=== PATIENT | female | born 1965 | race Caucasian/White ===

== ENCOUNTER 2025-03-26 10:07 | Emergency (ER) | payer BC ==
[~2025-03-26] VITALS: Ht 172.7 cm; Wt 91.5 kg
--- NOTE | 2025-03-26 10:25 | Physician Documentation ---
History of Present Illness ~ Chief Complaint: Facial Swelling Stated Complaint: FACIAL SWELLING Time Seen by MD: 10:49 [facility] 60 yr old female presents to the emergency department reporting that she had some left upper dental/gum pain that was mild last night. [place] as though something was stuck between her teeth. Woke up this morning, found that she had significant facial swelling to the extent that the left eye was swollen shut. Firm swelling of the left cheek. Minimal dental pain persists, denies chills or fever. Is concerned due to the rapid swelling, contacted her daughter who is an ER doctor and directed her here. Chief Complaint: Left facial swelling Caveat: None Independent Historians: None History of Present Illness: Patient is a healthy 60-year-old woman who comes in complaining of left facial swelling that is appeared this morning upon awakening. Patient noticed some mild vague dental pain in the left upper teeth and felt a small knot in the gum. No fevers. No difficulties breathing or swallowing. Review of systems: All systems were reviewed and are negative except for what is indicated in the history of present illness. Past Medical History: Distant history of seizure disorder Past Surgical History: Noncontributory Social History: No tobacco use, no alcohol use, no drug use Medications: Reviewed as documented Nursing Notes Allergies: Reviewed as documented in Nursing Notes Medication Reconciliation Allergies: Coded Allergies: No Known Allergies (Unverified , 03/26/25) Scheduled Amox Tr/Potassium Clavulanate 875/125 MG (Augmentin 875/125 MG), 1 TAB PO Q12H Scheduled PRN Hydrocodone Bit/Acetaminophen 5/325 MG (Arcadia 5/325 MG), 1 TAB PO TID PRN PRN for pain Review of Systems All Other Systems at this time: Reviewed and Negative ROS As stated above in the HPI, otherwise all systems are reviewed and negative. Physical Exam Vital Signs: Temperature: 99.1, Source: Temporal, Heart Rate: 80, Respiratory Rate: 16, BP: 130/79, Pulse Oximetry: 100, Weight: 91.550 Oxygen Flow Rate: 0 Physical Exam General: Alert, no apparent distress. HEENT: No trismus. Uvula midline and visible posterior. Face: Firm left facial swelling. Neck: Full range of motion. Respiratory: Lungs clear, no respiratory distress. Chest: No accessory muscle use. Cardiovascular: Regular rate and rhythm, no murmurs. Gastrointestinal: Soft, nontender, nondistended. Bowels sounds present. Extremities: Normal range of motion, no deformity. Neurologic: Oriented x4. Psychiatric: Normal mood and affect. Skin: Normal color, warm and dry. No edema, no ecchymosis. PHYSICAL EXAM BELOW BY DR. SINGER General Appearance: No distress HEENT: Normal OP, moist oral mucosa, PERRL, EOMI, left facial edema and swelling. No induration, no fluctuance, no erythema. Patient has some very mild fluctuance and tenderness along teeth 15. And 16. Teeth are not tender to tap. Parotid gland is not swollen, submandibular gland isn't swollen or tender. There was no submental swelling. Normal-appearing tongue. Neck: supple, normal ROM, trachea midline Pulmonary: No respiratory distress, CTA, BS equal Cardiac: RRR, no murmur, rub or gallop, Skin: intact, dry, warm, no rashes Neuro: AAOx3, speech is clear, no focal motor weakness Procedures Procedures DRAINAGE OF PERIDENTAL ABSCESS MILD FLUCTUANCE OVER LATERAL GUM OF TEETH NUMBER 15 AND 16. TOPICAL LIDOCAINE APPLIED AND THEN LOCAL LIDOCAINE 0.4 CC 1% WITH EPI INFILTRATED. 18 GAUGE NEEDLE USED TO ASPIRATE A SMALL AMOUNT OF PUS. SMALL AMOUNT OF BLOOD AFTERWARDS PRESENT. BLEEDING CONTROLLED. PATIENT TOLERATED THE PROCEDURE WELL. Progress Results/Orders Results/Orders Completed Orders - GIUSEPPE SINGER MD Lidocaine 1.5% W/Epi 1:200,000 (Xylocain (03/26/25 11:10) Amox Tr/Potassium Clavulanate (Augmentin (03/26/25 11:10) Lidocaine 1% W/Epi 1:100,000 (Xylocaine (03/26/25 11:10) Medications Received in ER Medications (Trade) Dose Ordered Sig/Babita Route PRN Reason Start Time Stop Time Status Last Admin Dose Admin (Xylocaine 1.5%-EPI 1:200,000) 5 ml ONCE ONCE IJ 03/26/25 11:10 03/26/25 11:11 DC 03/26/25 11:24 5 ML (Augmentin 875-125mg tablet) 1 tab ONCE ONCE PO 03/26/25 11:10 03/26/25 11:12 DC 03/26/25 11:24 1 TAB Vital Signs 03/26/25 03/26/25 10:16 11:40 Temp 99.1 Pulse 80 65 Resp 16 18 B/P (MAP) 130/79 128/92 (104) Pulse Ox 100 95 O2 Flow Rate 0 0 Laboratory Tests Test 03/26/25 10:50 White Blood Count 7.1 Red Blood Count 4.39 Hemoglobin 12.6 Hematocrit 37.5 Mean Corpuscular Volume 85.4 Mean Corpuscular Hemoglobin 28.6 Mean Corpuscular Hemoglobin Concent 33.5 Red Cell Distribution Width 13.6 Platelet Count 240 Mean Platelet Volume 6.8 L Neutrophils (%) (Auto) 65.6 Lymphocytes (%) (Auto) 25.0 Monocytes (%) (Auto) 7.2 Eosinophils (%) (Auto) 1.5 Basophils (%) (Auto) 0.7 Neutrophils # (Auto) 4.6 Lymphocytes # (Auto) 1.8 Monocytes # (Auto) 0.5 Eosinophils # (Auto) 0.1 Basophils # (Auto) 0.0 CBC Comment Sodium Level 140 Potassium Level 3.8 Chloride Level 108 H Carbon Dioxide Level 23.9 L Anion Gap 8 Blood Urea Nitrogen 18 Creatinine 0.80 Estimated GFR/1.73 m2 73 BUN/Creatinine Ratio 22.5 H Glucose Level 121 H Lactic Acid Level 0.7 Calcium Level 8.8 C-Reactive Protein 2.41 H Albumin 3.7 Procalcitonin < 0.05 Chemistry Comments Medical Decision Making Findings Differential diagnosis includes but is not limited to: Facial abscess, peridental abscess, periapical abscess, parotitis, salivary stone, Xavier's Laboratory data independent interpretation: CBC: Normal CMP: Unremarkable Lactic acid: 0.7 Procalcitonin: <0.05 CRP: Elevated 2.41 Emergency department course/medical decision-making: Patient presents with facial swelling secondary to a small peridental abscess. There was no evidence of facial abscess or facial cellulitis. There was no evidence of Xavier's. No evidence of salivary stone parotitis or sialadenitis. Patient had a small peridental abscess that I drained without any complications. Patient was started on Augmentin. Patient given a prescription for Arcadia 5 mg, 5. And Augmentin for 10 days. Test results treatment plan and all the above discussed with the patient. Patient is stable for discharge and follow up with dentist as needed. Tooth Diff. Dx: Considerations: Include: Alveolar fracture, Aveolar osteitis, ANUG, Facial cellulitis, Periapical abscess, Periodontal abscess, Post- extraction bleeding, Pulpitis, Trigeminal neuralgia, Tooth-avulsion, Tooth- eruption, Tooth-fracture, Tooth-subluxation Departure Time of Disposition: 11:21 Disposition: 01 HOME / SELF CARE / HOMELESS Impression: Primary Impression: Dental abscess Discharge Instructions: Abscess, Dental Additional Instructions: YOU HAVE A SMALL EARLY DENTAL ABSCESS. FOLLOW UP WITH YOUR DENTIST. RETURN TO THE ER IF YOUR SYMPTOMS WORSEN. Prescriptions Hydrocodone Bit/Acetaminophen 5/325 MG ([place]cad[place] 5/325 MG) 5 Mg/325 Mg Tablet 1 TAB PO TID PRN PRN for pain, #5 TAB Prov: GIUSEPPE SINGER MD 03/26/25 Amox Tr/Potassium Clavulanate 875/125 MG (Augmentin 875/125 MG) 875 Mg-125 Mg Tablet 1 TAB PO Q12H for 10 Days, #20 TAB Prov: GIUSEPPE SINGER MD 03/26/25 Education Educated: Patient Educated regarding: diagnosis, treatment Signature Scribe Signature: x No scribe Attestation: No scribe RENATO JUNE NP Mar 26, 2025 10:25 GIUSEPPE SINGER MD Mar 26, 2025 11:18
[2025-03-26 11:14] LABS: MEAN PLATELET VOLUME 6.8 FL (7.4-10.4); RED CELL DISTRIBUTION WIDTH 13.6 % (11.5-14.5)
[2025-03-26] MEDS ORDERED: AMOX-580 PO (11:23)
[2025-03-26] MEDS ORDERED: HYDR-3965 PO (11:23)
[2025-03-26] MEDS: amox tr/potassium clavulanate 875/125mg TAB PO ONE (11:24)
[2025-03-26] MEDS: LIDOcaine 1.5% w/epinephrine 1:200,000 5ml ampul IJ ONE (11:24)
[2025-03-26 11:27] LABS: CREATININE 0.80 MG/DL (0.40-0.90); TOTAL CARBON DIOXIDE 23.9 MMOL/L (24-32); eCRCL 76 ML/MIN; eGFR 73 ML/MIN
[2025-03-26] MEDS: LIDOcaine 1% W/epiNEPHrine 1:100,000 20ml vial SQ ONE (11:38)
[2025-03-26 11:56] VITALS: BP 128/92; PULSE 60; RESP 18; TEMP 99.1; O2SAT 97
== END 2025-03-26 11:58 | disposition home or self-care (01) ==
LOC: ER 10:08
DX: K04.7 Periapical abscess without sinus (principal); G40.909 Epilepsy, unspecified, not intractable, without status epilepticus
CPT/HCPCS: 36415; 41800; 80048; 83605; 84145; 85025; 86140; 87040; 99284; J3490